=== PATIENT | male | born 1985 | race Two or more races ===

== ENCOUNTER 2016-05-18 12:26 | Emergency (ER) | payer OTHER ==
[2016-05-18] MEDS ORDERED: IBUPROFEN 600 MG TABLET ONE (14:01)
--- NOTE | 2016-05-18 14:26 | RAD ---
RIGHT FOOT 3 VIEWS HISTORY: Right foot pain x4 days, no known trauma. COMPARISONS: None. TECHNIQUE: Frontal, lateral, and oblique views of the ALIGNMENT: Grossly unremarkable. FRACTURE: No displaced acute fracture. SOFT TISSUES: Minor soft tissue prominence of the lateral forefoot. No abnormal calcifications. RADIOOPAQUE FOREIGN BODY: None. IMPRESSION: No gross malalignment or displaced acute fracture noted. Nonspecific soft tissue prominence at the lateral forefoot.
== END 2016-05-18 14:47 | disposition home or self-care (01) ==
LOC: ED 12:26
DX: S93.601A Unspecified sprain of right foot, initial encounter (principal); G43.909 Migraine, unspecified, not intractable, without status migrainosus; I10 Essential (primary) hypertension; X58.XXXA Exposure to other specified factors, initial encounter
CPT/HCPCS: 73630; 99283 ×2; A9270